=== PATIENT | female | born 1985 | race Caucasian/White ===

== ENCOUNTER → 2018-03-01 | Outpatient (REF) | LOC: M LAB REF 15:35 | DX: Z36.9 Encounter for antenatal screening, unspecified (principal) ==

== ENCOUNTER → 2023-11-02 | Outpatient (CLI) | payer OTHER ==
[~2023-11-02] MED LIST: ISOVUE-300 61% 100ML VIAL As Ordered ONE; LIDOCAINE 1% MDV 20ML VIAL As Ordered ONE; PROHANCE 279.3MG/ML 5ML VIAL As Ordered ONE
== END ==
LOC: MERGE 10-09 07:00 → M RAD 06:42
PROVIDERS: ATTEND Orthopaedic Surgery Hand Surgery
DX: M25.531 Pain in right wrist (principal); M25.532 Pain in left wrist
CPT/HCPCS: 25246; 73221; 77002; A9576; Q9967

== ENCOUNTER 2024-02-21 08:54 | Day surgery (SDC) | payer OTHER ==
[~2024-02-21] VITALS: Ht 152.4 cm; Wt 43.5 kg
[~2024-02-21 08:54] MED LIST changes: +CITA20TA6 PO; +DICL75TA PO; -ISOVUE-300 61% 100ML VIAL As Ordered ONE; -LIDOCAINE 1% MDV 20ML VIAL As Ordered ONE; +LIDOCAINE W/EPINEPHRINE 1% 20ML VIAL XX ONE; -PROHANCE 279.3MG/ML 5ML VIAL As Ordered ONE; +SIMV40TA20 PO; +SODIUM BICARBONATE 8.4% INJ 50MEQ 50ML VIAL XX ONE; +SPRI28TA PO; +THERTAB52 PO; +TRAZ-252 PO
[2024-02-21] MEDS: BACITRACIN OINTMENT 30GM TUBE As Ordered ONE (10:19)
[2024-02-21 10:30] VITALS: BP 119/69; TEMP 98.2; O2SAT 100
== END 2024-02-21 10:55 | disposition home or self-care (01) ==
LOC: M SDC 08:54
PROVIDERS: ATTEND Orthopaedic Surgery Hand Surgery
DX: G56.01 Carpal tunnel syndrome, right upper limb (principal)

== ENCOUNTER → 2024-07-30 | Outpatient (REF) | payer OTHER ==
[~2024-07-30] MED LIST changes: -LIDOCAINE W/EPINEPHRINE 1% 20ML VIAL XX ONE; -SODIUM BICARBONATE 8.4% INJ 50MEQ 50ML VIAL XX ONE
[2024-07-30 16:50] LABS: BASO # 0.1 10^3/uL (0.0-0.2); BASO % 0.7 % (0.0-1.0); EOS # 0.1 10^3/uL (0.0-0.5); EOS % 1.2 % (0.0-3.0); HEMATOCRIT 38.9 % (36.0-47.0); LYMPH # 1.9 10^3/uL (1.5-5.0); LYMPH % 20.5 % (24.0-44.0); MEAN CORPUSCULAR HEMOGLOBIN 29.6 pg (27.0-33.0); MEAN CORPUSCULAR HGB CONC 33.4 g/dl (32.0-36.5); MEAN CORPUSCULAR VOLUME 88.6 fl (80.0-96.0); MONO # 0.5 10^3/uL (0.0-0.8); MONO % 5.2 % (2.0-8.0); NEUTROPHILS # 6.7 10^3/uL (1.5-8.5); PLATELET COUNT, AUTOMATED 283 10^3/uL (150-450); RED BLOOD COUNT 4.39 10^6/uL (4.00-5.40); WHITE BLOOD COUNT 9.4 10^3/uL (4.0-10.0)
[2024-07-30 16:56] LABS: ERYTHROCYTE SEDIMENTATION RATE 17 mm/hr (0-20)
[2024-07-30 17:15] LABS: IMMUNOGLOBULIN A 229.8 MG/DL (40-350); IMMUNOGLOBULIN G 1201 MG/DL (650-1600)
[2024-07-30 17:16] LABS: ALBUMIN 3.5 G/DL (3.2-5.2); ALKALINE PHOSPHATASE 61 U/L (35-104); ALT/SGPT 12 U/L (7.0-40); AST/SGOT 12 U/L (<34); BILIRUBIN,DIRECT 0.1 MG/DL (<0.4); BILIRUBIN,TOTAL 0.5 MG/DL (0.3-1.2); BLOOD UREA NITROGEN 9 MG/DL (9-23); C REACTIVE PROTEIN QUANTITATIV < 0.50 MG/DL (<1.0); CALCIUM LEVEL 8.8 MG/DL (8.5-10.1); CARBON DIOXIDE LEVEL 24 MMOL/L (20-31); CHLORIDE LEVEL 105 MMOL/L (98-107); CREATININE FOR GFR 0.66 MG/DL (0.55-1.30); GLOMERULAR FILTRATION RATE > 60.0 (>60); GLUCOSE, FASTING 77 MG/DL (60-100); POTASSIUM SERUM 4.4 MMOL/L (3.5-5.1); SODIUM LEVEL 138 MMOL/L (136-145); TOTAL 25(OH) VITAMIN D 38.6 NG/ML (20.0-100.0)
[2024-07-30 17:31] LABS: APPEARANCE, URINE HAZY (CLEAR); BACTERIA, URINE AUTO NEGATIVE (NEGATIVE); BILIRUBIN, URINE AUTO NEGATIVE (NEGATIVE); BLOOD, URINE BLOOD NEGATIVE (NEGATIVE); COLOR, URINE YELLOW (YELLOW); GLUCOSE, URINE (UA) AUTO NEGATIVE (NEGATIVE); KETONE, URINE AUTO NEGATIVE (NEGATIVE); LEUKOCYTE ESTERASE, URINE AUTO NEGATIVE (NEGATIVE); MUCUS, URINE SMALL (NEGATIVE); NITRITE, URINE AUTO NEGATIVE (NEGATIVE); PROTEIN, URINE AUTO NEGATIVE (NEGATIVE); RBC, URINE AUTO 1 /HPF (0-3); SPECIFIC GRAVITY URINE AUTO 1.018 (1.002-1.035); SQUAMOUS EPITHELIAL CELL UR AU 2 /HPF (0-6); UROBILINOGEN, URINE AUTO 0.2 mg/dL (0.0-2.0); WBC, URINE AUTO 0 /HPF (0-3)
[2024-07-30 17:48] LABS: TOTAL PROTEIN,RANDOM URINE 15.6 MG/DL (0.0-14.0)
[2024-07-30 17:53] LABS: CREATININE,RANDOM URINE 119.6 MG/DL
== END ==
LOC: M SFHCRHEU 12:44
PROVIDERS: ATTEND Internal Medicine
DX: R76.8 Other specified abnormal immunological findings in serum (principal); E55.9 Vitamin D deficiency, unspecified; R53.82 Chronic fatigue, unspecified; M25.50 Pain in unspecified joint

== ENCOUNTER → 2025-03-19 | Outpatient (REF) | LOC: M PLAIMG 11:53 | PROVIDERS: ATTEND Internal Medicine | DX: M79.642 Pain in left hand (principal) ==

== ENCOUNTER → 2025-06-09 | Outpatient (CLI) | payer OTHER | LOC: M PLAIMG 08:49 | PROVIDERS: ATTEND Internal Medicine | DX: M25.531 Pain in right wrist (principal); M25.532 Pain in left wrist ==

== ENCOUNTER → 2025-06-23 | Outpatient (REF) | payer OTHER ==
[2025-06-23 18:51] LABS: MYOGLOBIN 19.0 NG/ML (<110)
[2025-06-23 18:52] LABS: LDH LACTATE DEHYDROGENASE 175 U/L (120-246)
[2025-06-23 18:53] LABS: ALT/SGPT 13 U/L (7.0-40); AST/SGOT 20 U/L (<34)
[2025-06-23 18:55] LABS: CPK CREATINE PHOSPHOKINASE 73 U/L (34-145)
== END ==
LOC: M SFHCRHEU 12:32
PROVIDERS: ATTEND Internal Medicine
DX: M65.90 Unspecified synovitis and tenosynovitis, unspecified site (principal); M62.89 Other specified disorders of muscle

== ENCOUNTER → 2025-07-11 | Outpatient (REF) | payer OTHER | LOC: M SFHCRHEU 09:35 | PROVIDERS: ATTEND Internal Medicine | DX: M62.89 Other specified disorders of muscle (principal) ==